=== PATIENT | female | born 1975 | race Caucasian/White ===

== ENCOUNTER 2018-10-14 12:50 | Emergency (ER) | payer OTHER ==
[~2018-10-14] VITALS: Ht 162.6 cm; Wt 82.1 kg
[2018-10-14] MEDS ORDERED: CELEXA10 MG PO (13:14)
[2018-10-14] MEDS ORDERED: HYDROXYZINE HCL50 MG PO (13:15)
[2018-10-14] MEDS ORDERED: CHANTIX1 MG PO (13:15)
[2018-10-14] MEDS ORDERED: COREG3.125 MG PO (13:15)
[2018-10-14] MEDS ORDERED: COLACE CLEAR50 MG PO (13:16)
[2018-10-14] MEDS ORDERED: NORCO 5-325 TA1 EACH PO (18:02)
== END 2018-10-14 18:15 | disposition home or self-care (01) ==
LOC: ED 12:50
DX: K65.4 Sclerosing mesenteritis (principal); Z91.013 Allergy to seafood; Z88.8 Allergy status to other drugs, medicaments and biological substances; Z79.899 Other long term (current) drug therapy
CPT/HCPCS: 74176; 80053; 81001; 83690; 84703; 85025; 96374; 96375; 96376; 99284-25; J1885; J2270; J2405

== ENCOUNTER 2018-12-25 16:29 | Emergency (ER) | payer OTHER ==
[~2018-12-25] VITALS: Ht 162.6 cm; Wt 82.1 kg
[~2018-12-25 16:29] MED LIST: CELEXA10 MG PO; CHANTIX1 MG PO; COLACE CLEAR50 MG PO; COREG3.125 MG PO; HYDROXYZINE HCL50 MG PO; NORCO 5-325 TA1 EACH PO
--- OUTSIDE RECORDS SUMMARY | 2018-12-25 16:32 | XMS ---
PreManage Notification: JIAN MUNOZ Security Account Processor Events No recent Security Events currently on file CRITERIA MET - [facility] CARE PROVIDERS MIKI AGUILAR Student in an Organized Health Care Current DANIELLE Education/Training Program PHONE: [phone] JAGRUTI POOLE Counselor: Mental Health Current PHONE: [phone] FRANCISCO SILVER Counselor: Mental Health Current PHONE: [phone] SHAGGY ZHANG Physician Animation Producer Current PHONE: Unknown MIKI CLAY Primary Care Rajinder AGUILAR PHONE: Unknown Danielle Dan Primary Care Current PHONE: Unknown Elliott has no Care Guidelines for this patient. Ar[facility]ind [facility] (12 MO.) [facility] TOTAL 3 NOTE: Visits indicate total known visits. ED/UCC VISIT TRACKING (12 MO.) 12/25/2018 16:30 [facility] [place] TYPE: Emergency COMPLAINT: - ABDOMINAL PAIN 10/14/2018 12:51 [facility] [place] TYPE: Emergency COMPLAINT: - FLANK PAIN DIAGNOSES: - Unspecified abdominal pain - Other buttermaker continuous churn (current) drug therapy - Sclerosing mesenteritis - Allergy to seafood - Allergy status to other drugs, medicaments and biological substances status 02/05/2018 20:23 [facility] DIAGNOSES: - chest pain palpitations - Chest Pain - Palpitations INPATIENT VISIT TRACKING (12 MO.) No inpatient visits to display in this time frame [email or web address]
== END 2018-12-25 19:10 | disposition home or self-care (01) ==
LOC: ED 16:29
DX: R10.9 Unspecified abdominal pain (principal); Z87.442 Personal history of urinary calculi; F17.200 Nicotine dependence, unspecified, uncomplicated; Z91.041 Radiographic dye allergy status; Z91.013 Allergy to seafood; Z79.899 Other long term (current) drug therapy
CPT/HCPCS: 80053; 81001; 83690; 85025; 96361; 96374; 96375; 99284-25; J1170; J1885; J2405; J7120

== ENCOUNTER 2019-06-04 21:30 | Emergency (ER) | payer OTHER ==
[~2019-06-04] VITALS: Ht 162.6 cm; Wt 90.3 kg
--- OUTSIDE RECORDS SUMMARY | 2019-06-04 21:34 | XMS ---
PreManage Notification: JIAN MUNOZ Security Process Artist Events No recent Security Events currently on file CRITERIA MET - [facility] CARE PROVIDERS JAGRUTI POOLE Counselor: Mental Health Current PHONE: [phone] SHAGGY ZHANG Physician Furniture Repairer Current PHONE: Unknown MIKI CLAY Primary Care Current LAUREN PHONE: Unknown Danielle Dna Primary Care Current PHONE: Unknown Elliott has no Care Guidelines for this patient. Arvind VISIT COUNT (12 MO.) 3 [facility] TOTAL 3 NOTE: Visits indicate total known visits. ED/UCC VISIT TRACKING (12 MO.) 06/04/2019 21:32 [facility] [place] TYPE: Emergency COMPLAINT: - MEDICAL CLEARANCE 12/25/2018 16:30 [facility] [place] TYPE: Emergency COMPLAINT: - ABDOMINAL PAIN DIAGNOSES: - Other usp (current) drug therapy - Allergy to seafood - Nicotine dependence, unspecified, uncomplicated - Personal history of urinary calculi - Radiographic dye allergy status - Unspecified abdominal pain 10/14/2018 12:51 [facility] [place] TYPE: Emergency COMPLAINT: - FLANK PAIN DIAGNOSES: - Unspecified abdominal pain - Other usp (current) drug therapy - Sclerosing mesenteritis - Allergy to seafood - Allergy status to [facility] drug/meds/biol subst status INPATIENT VISIT TRACKING (12 MO.) No inpatient visits to display in this time frame [email or web address]
[2019-06-04] MEDS ORDERED: OXYCODONE HCL5 MG PO (22:18)
[2019-06-04] MEDS ORDERED: CYCLOBENZAPRINE10 MG PO (22:33)
[2019-06-04] MEDS ORDERED: BUSPIRONE HCL7.5 MG PO (22:34)
[2019-06-04] MEDS ORDERED: VENTOLIN HFA18 GM INH (22:36)
== END 2019-06-05 08:02 ==
LOC: ED 21:30
DX: R45.851 Suicidal ideations (principal); D72.829 Elevated white blood cell count, unspecified; F17.200 Nicotine dependence, unspecified, uncomplicated; Z88.8 Allergy status to other drugs, medicaments and biological substances; Z91.030 Bee allergy status; Z79.899 Other long term (current) drug therapy; Z79.891 Long term (current) use of opiate analgesic
CPT/HCPCS: 36415; 80053; 80176; 81001; 84443; 84703; 85025; 99285; G0480

== ENCOUNTER 2020-05-13 20:08 | Emergency (ER) | payer OTHER ==
[~2020-05-13] VITALS: Ht 162.6 cm; Wt 85.7 kg
[~2020-05-13 20:08] MED LIST changes: +BUSPIRONE HCL7.5 MG PO; +CYCLOBENZAPRINE10 MG PO; +OXYCODONE HCL5 MG PO; +VENTOLIN HFA18 GM INH
[2020-05-13] MEDS ORDERED: SEROQUEL25 MG PO (20:24)
[2020-05-13] MEDS ORDERED: REGLAN10 MG PO (20:25)
[2020-05-13] MEDS ORDERED: BACLOFEN10 MG PO (20:26)
[2020-05-13] MEDS ORDERED: OMEPRAZOLE20 MG PO (20:26)
[2020-05-13] MEDS ORDERED: DOXYCYCLINE HY100 MG PO (20:27)
[2020-05-13] MEDS ORDERED: COLACE100 MG PO (20:28)
--- OUTSIDE RECORDS SUMMARY | 2020-05-13 22:00 | XMS ---
PreManage Notification: JIAN MUNOZ Security Marriage Therapist Events No recent Security Events currently on file CRITERIA MET - [facility] CARE PROVIDERS There are no care providers on record at this time. Elliott has no Care Guidelines for this patient. Arvind VISIT COUNT (12 MO.) 2 [facility] TOTAL 5 NOTE: Visits indicate total known visits. ED/C VISIT TRACKING (12 MO.) 05/13/2020 20:09 [facility] [place] TYPE: Emergency COMPLAINT: - UNKNOWN BITE 10/15/2019 21:52 Bryanna GONSALEZ TYPE: Emergency COMPLAINT: - FB 08/24/2019 20:08 Bryanna GONSALE[facility] TYPE: Emergency COMPLAINT: - URINARTY SYMPTOMS DIAGNOSES: - Personal history of nicotine dependence - Tubulo-interstitial nephritis, not specified as acute or chronic - Urinary tract infection, site not specified [facility]2019 [facility] DIAGNOSES: - Abdominal Pain - abd pain lt side,poss fever - abd pain lt side,poss fever,poss constipation - Constipation - Slow transit constipation 06/04/2019 21:32 [facility] [place] [facility] [place] TYPE: Emergency COMPLAINT: - MEDICAL CLEARANCE DIAGNOSES: - Other terminal system operator (current) drug therapy - terminal system operator (current) use of opiate analgesic - Nicotine dependence, unspecified, uncomplicated - Bee allergy status - Elevated white blood cell count, unspecified - Low back pain - Allergy status to other drugs, medicaments and biological substances - Suicidal ideations - Suicidal ideations INPATIENT VISIT TRACKING (12 MO.) 10/15/2019 23:41 Bryanna GONSALEZ TYPE: [facility] COMPLAINT: - ASPIRATION DIAGNOSES: - Post-traumatic stress disorder, unspecified - Opioid dependence, uncomplicated - Major depressive disorder, single episode, unspecified - Other chronic pain - Exposure to other specified factors, initial encounter - Obstructive sleep apnea (adult) (pediatric) - Unspecified asthma, uncomplicated - Fibromyalgia - Obesity, unspecified - Dysphagia, unspecified - Food in respiratory tract, part unspecified causing asphyxiation, initial encounter - Nicotine dependence, unspecified, uncomplicated - Dyskinesia of esophagus - Cannabis use, unspecified, uncomplicated - Gastro-esophageal reflux disease without esophagitis - Anxiety disorder, unspecified - Body mass index [BMI] 31.0-31.9, adult - Gastroparesis [email or web address]
== END 2020-05-13 22:40 | disposition home or self-care (01) ==
LOC: ED 20:08
PROC: 0H97XZZ Drainage of Abdomen Skin, External Approach (ICD-10-PCS; principal; 2020-05-13)
DX: L02.211 Cutaneous abscess of abdominal wall (principal); F17.200 Nicotine dependence, unspecified, uncomplicated; Z88.8 Allergy status to other drugs, medicaments and biological substances; Z91.013 Allergy to seafood; Z79.899 Other long term (current) drug therapy; Z79.891 Long term (current) use of opiate analgesic
CPT/HCPCS: 10060; 99283-25